=== PATIENT | male | born 1980 | race Caucasian/White ===

== ENCOUNTER 2020-03-21 16:09 | Emergency (ER) | payer OTHER ==
[2020-03-21 17:05] LABS: HEMOGLOBIN 17.1 gm/dl (14.0-17.5); RED BLOOD COUNT 5.52 M/UL (4.20-5.50); WHITE BLOOD COUNT 4.6 K/UL (4.5-11.0)
[2020-03-21 17:29] LABS: BUN/CREATININE RATIO 27 (0-10)
== END 2020-03-21 18:23 | disposition home or self-care (01) ==
LOC: ER1 16:09
PROVIDERS: Emergency Medicine
DX: R42 Dizziness and giddiness (principal); I10 Essential (primary) hypertension; F17.290 Nicotine dependence, other tobacco product, uncomplicated
CPT/HCPCS: 70450; 71045; 80053; 81001; 82550; 82553; 83735; 83874; 84484; 85025; 93005; 99284

== ENCOUNTER 2020-04-27 14:00 | Emergency (ER) | payer OTHER ==
[2020-04-27] MEDS ORDERED: VISTARIL25 MG PO (15:28)
== END 2020-04-27 16:00 | disposition home or self-care (01) ==
LOC: ER1 14:00
DX: F41.9 Anxiety disorder, unspecified (principal); I10 Essential (primary) hypertension; F17.200 Nicotine dependence, unspecified, uncomplicated
CPT/HCPCS: 99283; Q0177

== ENCOUNTER 2020-06-16 05:09 | Emergency (ER) | payer OTHER ==
[~2020-06-16 05:09] MED LIST: VISTARIL25 MG PO
[2020-06-16 05:44] LABS: HEMOGLOBIN 18.4 gm/dl (14.0-17.5); RED BLOOD COUNT 6.05 M/UL (4.20-5.50); WHITE BLOOD COUNT 7.4 K/UL (4.5-11.0)
[2020-06-16 06:02] LABS: BUN/CREATININE RATIO 20 (0-10)
[2020-06-16] MEDS ORDERED: ASPIRIN CHEWABL81 MG PO (09:13)
[2020-06-16] MEDS ORDERED: NITROSTAT0.4 MG SL (09:13)
== END 2020-06-16 09:50 | disposition home or self-care (01) ==
LOC: ER1 05:09
PROVIDERS: Emergency Medicine
DX: R07.89 Other chest pain (principal); I10 Essential (primary) hypertension; E87.6 Hypokalemia
CPT/HCPCS: 71045; 80053; 82550; 82553; 83690; 83735; 83874; 84484; 85025; 85379; 85610; 85730; 93005; 99284